=== PATIENT | female | born 1975 | race Caucasian/White ===

== ENCOUNTER 2019-04-02 10:22 | Emergency (ER) | payer MEDICAID ==
[~2019-04-02] VITALS: Ht 157.5 cm; Wt 113.2 kg
[~2019-04-02 10:22] MED LIST: ACET-141 PO; AZIT250T PO; CEPH-443 PO; D-ME473S2 PO; IBUP-1542 PO; IBUP-1561 PO; IBUP800T48 PO; ONDA4TAB14 PO; PRAV20TA63 PO
[2019-04-02 10:28] VITALS: BP 167/99; PULSE 96; RESP 22; Ht 157.5 cm; Wt 113.2 kg
[2019-04-02] MEDS ORDERED: KETOROLAC 15 MG INJ IM STA (11:07)
[2019-04-02] MEDS ORDERED: ONDANSETRON (ODT) 4 MG TAB ODT STA (11:07)
== END 2019-04-02 13:04 | disposition home or self-care (01) ==
LOC: FTE 10:22
DX: N39.0 Urinary tract infection, site not specified (principal); R51 Headache; E03.9 Hypothyroidism, unspecified; R07.9 Chest pain, unspecified
CPT/HCPCS: 36415; 71045; 80053; 81001; 81025; 83690; 85025; 93005; 96372; J1885; Z7502; Z7610